=== PATIENT | female | born 1965 | race Caucasian/White ===

== ENCOUNTER 2023-10-08 15:05 | Emergency (ER) | payer BC, SELFPAY ==
[2023-10-08 15:08] VITALS: BP 145/79
[2023-10-08 15:28] LABS: % Basophils 0.8 % (0-2); % Eosinophils 2.6 % (0-6); % Immature Granulocytes 0.4 % (0-0.5); % Lymphocytes 30.3 % (20.5-51.1); % Monocytes 9.3 % (1.7-9.3); % Neutrophils 56.6 % (42.2-75.2); Absolute Eosinophils 0.1 10^3/uL (0-0.7); Absolute Lymphocytes 1.5 10^3/uL (1.2-3.4); Absolute Monocytes 0.5 10^3/uL (0.1-0.6); Absolute Neutrophils 2.9 10^3/uL (1.4-6.5); Hemoglobin 13.3 g/dL (12.0-16.0); Mean Corp Hgb Conc. 34.1 g/dL (33.0-37.0); Mean Corpuscular Hgb 29.8 pg (27.0-31.0); Mean Corpuscular Volume 87.2 fL (81.0-99.0); Mean Platelet Volume 8.8 fL (7.4-10.4); Nucleated Red Blood Cells % 0 %; Platelet Count 280 10^3/uL (130-400); Red Blood Cell Count 4.47 10^6/uL (4.20-5.40); Red Cell Dist. Width 13.3 % (11.5-14.5); Urine Albumin Negative (Neg - Trace); Urine Bilirubin Negative (Negative); Urine Character Clear (Clear); Urine Color Yellow; Urine Glucose Negative (Negative); Urine Ketone Negative (Negative); Urine Leukocyte Trace (Negative); Urine Nitrite Negative (Negative); Urine Occult Blood Negative (Negative); Urine Urobilinogen Negative (Neg - 1+); White Blood Cell Count 5.1 10^3/uL (4.8-10.8)
[2023-10-08 15:50] LABS: ALT (SGPT) 17 U/L (0-35); AST (SGOT) 22 U/L (14-36); Albumin 4.5 g/dl (3.5-5.0); Alkaline Phosphatase 62 U/L (38-126); Blood Urea Nitrogen 11 mg/dl (7-17); Calcium 9.6 mg/dl (8.4-10.2); Carbon Dioxide 29 mmol/L (22-30); Chloride 105 mmol/L (98-107); Glucose 98 mg/dl (70-99); Lipase 105 U/L (23-300); Potassium 4.3 mmol/L (3.5-5.1); Sodium 138 mmol/L (135-145); Total Bilirubin 0.4 mg/dl (0.2-1.3); Total Protein 6.9 g/dl (6.3-8.2); eGFR > 60.00
[2023-10-08 15:54] LABS: Urine Red Blood Cell 0-2 /HPF (0-2); Urine Squamous Cell 0-2 /LPF (Few); Urine White Cell 0-2 /HPF (0-5)
[2023-10-08] MEDS: OMNIPAQUE 50 ML PO (18:02)
[2023-10-08 18:09] VITALS: BMI 26.8
[2023-10-08 18:15] VITALS: BP 125/75
[2023-10-08] MEDS: BENTYL 20 MG IM (18:38)
[2023-10-08 19:00] VITALS: BP 126/64
[2023-10-08] MEDS: AUGMENTIN 875 MG/125 MG 1 TABLET PO (20:33)
--- NOTE | 2023-10-08 21:02 | ED.GENMED ---
History of Present Illness
General
Chief Complaint: Abdominal Symptoms
Source: patient
Exam Limitations: none
Time Seen by Provider: 10/08/23 17:30
Nursing documentation reviewed up to this point in time: agreed with
Travel History
Have you had any contact with someone who has COVID-19?: No
Do you have any symptoms of coronavirus? Fever > 100 degrees, chills, cough, shortness of breath, sore throat, loss of taste or smell, muscle aches, or headache?: No
History of Present Illness
History of Present Illness:
Patient to ED with complaint of abdominal cramping and diarrhea x 2 months. Initially told by PCP that she picked up a stomach bug and that it would soon resolve. States symptoms continue. She has a CT of abdomen ordered but not until November 03.
She did not feel that she could wait. Brought self to ED for eval. Denies fever/chills. +nausea. No recent antibiotic use.
Past History
Past History
ED Past Medical History: Asthma
ED Past Surgical History: Tonsilectomy and Other (Sphincterotomy, wisdom teeth, bladder mesh)
Social History
Tobacco: Non-smoker
Alcohol: None
Drug: None
Living: with family
Review of Systems
Review of Systems
Allergies reviewed?: Yes
All Other Systems: ROS reviewed and negative except as documented in HPI and ROS
Constitutional: Reports no symptoms
EENT: Reports no symptoms
Respiratory: Reports no symptoms
Cardiac: Reports no symptoms
ABD/GI: Reports abdominal pain (abdominal cramping), nausea, vomiting and diarrhea
: Reports no symptoms
Musculoskeletal: Reports no symptoms
Skin: Reports no symptoms
Neurological: Reports no symptoms
Psychiatric: Reports no symptoms
Phy Exam
General Physical Exam
General Presentation: well appearing and no apparent distress
General age: appears stated age
General Skin: warm and dry
General Habitus: normal
General Mental: alert
General Hydration: appears well hydrated
Cardiovascular Exam
Cardiovascular Exam: regular rate/rhythm and no edema
Pulmonary Exam
Pulmonary Exam: no respiratory distress and chest non tender
Gastrointestinal Exam
Gastrointestinal Exam: normal bowel sounds, soft, no organomegaly, no pulsatile mass, non distended and no cva tenderness
Palpation: left upper quadrant: No tenderness, left lower quadrant: Mild tenderness, right upper quadrant: No tenderness and right lower quadrant: Mild tenderness
Musculoskeletal Exam
Musculoskeletal Exam: full ROM and neuro vasc intact
Skin Exam
Skin Exam: normal color, warm/dry and no rash
Psychiatric Exam
Psychiatric Exam: normal mood/affect
Course
Orders/Labs/Results
Orders:
Orders
10/08/23 15:20
Complete Blood Count/With Diff Urgent
Comprehensive Metabolic Panel Urgent
Lactic Acid Urgent
Lipase Urgent
Urine Culture Reflexed from UA [Urinalysis Reflex To Culture] Urgent
Date Specimen was Collected: 10/08/23
Time Specimen was Collected: 15:12
Urine Microscopic Reflex Cult Urgent
10/08/23 17:40
CT Abd/pel W Iv And Oral Contr Urgent
Comment:
Reason For Exam: lower abd pain
Iohexol [Omnipaque] See Protocol PO NOW STA
10/08/23 18:36
Dicyclomine HCl [Bentyl] 20 mg .ROUTE .STK-MED ONE
10/08/23 18:37
Dicyclomine HCl [Bentyl] 20 mg IM NOW STA
10/08/23 19:47
Stool Culture Urgent
THERESA Source: Feces/Stool
Specimen Description:
Date Specimen was Collected: 10/08/23
Time Specimen was Collected: 19:43
10/08/23 20:26
Amoxicillin 875 mg/Clav 125 mg [Augmentin 875 mg/125 mg] 1 tablet PO NOW STA
Abnormal Lab Results
10/08/23
15:20
Leukocyte Esterase Rfl Trace A
(Negative)
10/08/23 15:20
10/08/23 15:20
Vital Signs
Initial and Last Documented VS:
Initial Vital Signs
Temp Pulse Resp BP Pulse Ox
98.3 F 91 20 145/79 98
10/08/23 15:08 10/08/23 15:08 10/08/23 15:08 10/08/23 15:08 10/08/23 15:08
Last Documented Vital Signs
Temp Pulse Resp BP Pulse Ox
98.3 F 74 20 126/64 99
10/08/23 15:08 10/08/23 20:47 10/08/23 20:47 10/08/23 19:00 10/08/23 20:47
*Radiology
Radiology exam reviewed: radiology read reviewed
*Pulse Oximetry
Patient hypoxic: no
*Critical Care Note
Total Time (30-74mins, 75-104mins- exclusive of procedures): Not Applicable
ED Attending Note
-
Portions of this chart may have been created with voice recognition software.� Occasional wrong word or��sound alike� substitutions may have occurred due to the inherent limitations of voice recognition software.
Discharge Plan
Departure
Patient Disposition: Home (Routine Discharge)
Date of Disposition: 10/08/23
Time of Disposition: 20:27
Patient with high blood pressure during this ER visit?: No
Condition: Good
Covid-19: Not Applicable
Discharge Problem:
Colitis
Instructions: Clear Liquid Diet, Colitis (DC)
Prescriptions:
New
amoxicillin-pot clavulanate 875-125 mg tablet
1 tab PO BID Qty: 14 0RF
dicyclomine 10 mg capsule
10 mg PO QID PRN (Reason: abdominal pain) Qty: 20 0RF
Referrals:
Angeles Brito CRNP [Family Provider] - Follow up in 2-3 days
Interventions
Interventions:
*Risk Screen - Suicide Last Done: 10/08/23 15:08
*General Assessment Last Done: 10/08/23 15:08
*Neglect/Abuse Screening Last Done: 10/08/23 18:10
ED- Fall Risk Assessment Last Done: 10/08/23 20:47
*ED COVID-19 Vaccine History Last Done: 10/08/23 18:10
*Nursing Disposition Last Done: 10/08/23 20:47
VD-Faohjx-Bzjwstkmpe Assessment Last Done: 10/08/23 18:10
Discharge Date and Time
Discharge Date/Time: 10/08/23 20:49
== END 2023-10-08 20:49 | disposition home or self-care (01) ==
LOC: EMR 15:05
PROVIDERS: EMERGENCY PHYSICIAN Emergency Medicine; FAMILY PHYSICIAN Nurse Practitioner Adult Health
DX: K52.9 Noninfective gastroenteritis and colitis, unspecified (principal)
CPT/HCPCS: 99285; 96372; 74177; 80053; 81003; 81015; 83605; 83690; 85025; 87045; 87046; 87427; Q9967